=== PATIENT | male | born 1970 | race Caucasian/White ===

== ENCOUNTER → 2016-11-29 | Outpatient (CLI) | payer BC | END | disposition home or self-care (01) | LOC: GMAM 10:20 | PROVIDERS: ATTEND Family Medicine | DX: Z12.5 Encounter for screening for malignant neoplasm of prostate (principal); E29.1 Testicular hypofunction ==

== ENCOUNTER → 2016-12-14 | Outpatient (CLI) | payer BC ==
--- NOTE | 2016-12-15 03:14 | US ---
EXAM DESCRIPTION: Liver CLINICAL HISTORY: ELEVATED LFT COMPARISON: None. TECHNIQUE: Real-time sonographic images of the right upper abdomen were obtained using a curved multihertz transducer. FINDINGS: The visualized portions of the pancreas are unremarkable. The visualized portions of the aorta and IVC are unremarkable. The liver has normal contour and increased echogenicity. The common bile duct measures 0.5 cm. The gallbladder has a normal appearance. No gallstones identified. No wall thickening or pericholecystic fluid. The right kidney measures 14.8 cm in length. No hydronephrosis, solid renal mass, or shadowing calculi. IMPRESSION: 1. Hepatic steatosis. No gallstones. Electronically signed by: Uche Millan 12/15/2016 3:13 AM OB GYN PHYSICIAN ASSISTANT
== END | disposition home or self-care (01) ==
LOC: US 07:53
PROVIDERS: ATTEND Family Medicine
DX: K76.0 Fatty (change of) liver, not elsewhere classified (principal); R73.9 Hyperglycemia, unspecified; I10 Essential (primary) hypertension; E29.1 Testicular hypofunction; R94.5 Abnormal results of liver function studies

== ENCOUNTER 2018-01-17 02:20 | Emergency (ER) | payer BC ==
[2018-01-17 02:47] VITALS: O2SAT 97
[2018-01-17] MEDS ORDERED: CLINDAMYCIN IV 900MG 900 MG in PREMIX BAG 1 BAG IVPB ONE (03:19)
--- NOTE | 2018-01-17 03:22 | ED.PDOC ---
History of Present Illness - General Chief Complaint: Lower Extremity Injury Stated Complaint: red, edmatous rt ankle Time Seen by Provider: 01/17/18 03:18 Source: patient Exam Limitations: no limitations - History of Present Illness Initial Comments: THIS PATIENT SUSTAINED A LACERATION TO THE POSTERIOR ASPECT OF THE RIGHT ANKLE ABOUT ONE WEEK AGO. HE HAS LOSS OF SOME FLESH AND HAS NOT BEEN DOCTROING THE WOUND. NOW HE HAS DEVELOPED SWELLING OF THE LATERAL ABKLE WITH ERYTHEMA TO THE SKIN. DENIES ANY FEVER. Pain - Lower Extremity: moderate: Right Ankle Method of Injury: direct blow Improving Factors: nothing Worsening Factors: nothing Allergies/Adverse Reactions: Allergies NO KNOWN ALLERGY Allergy (Verified 01/17/18 03:49) Home Medications: Ambulatory Orders Clindamycin HCl 300 mg PO Q6HRS #40 cap 01/17/18 Tramadol HCl 50 mg PO Q6HRS #20 tab 01/17/18 Review of Systems - Review of Systems Constitutional: States: no symptoms reported, other - PAIN AND SWELLING EENTM: States: no symptoms reported Respiratory: States: no symptoms reported Cardiology: States: no symptoms reported Gastrointestinal/Abdominal: States: no symptoms reported Genitourinary: States: no symptoms reported Musculoskeletal: States: no symptoms reported Skin: States: other - REDNESS Neurological: States: no symptoms reported Endocrine: States: no symptoms reported Hematologic/Lymphatic: States: no symptoms reported Past Medical History (General) - Patient Medical History Hx Hypertension: Yes Surgical History: other - Vaccination History Hx Tetanus, Diphtheria Vaccination: No Hx Influenza Vaccination: No Hx Pneumococcal Vaccination: No - Social History Hx Alcohol Use: Yes - social Family Medical History - Family History Father Hx Family Hypertension: Yes Physical Exam - Physical Exam General Appearance: Alert, Well Developed, Well Hydrated, Well Nourished Eyes, Ears, Nose, Throat: normal ENT inspection Neck: non-tender, full range of motion, supple, normal inspection Cardiovascular/Respiratory: regular rate, rhythm, no M/R/G, normal peripheral pulses Gastrointestinal/Abdominal: non-tender, no organomegaly, no hernia Back: normal inspection Thigh/Hip: normal inspection Leg: normal inspection, non-tender Knee: normal inspection, non-tender, no evidence of injury Ankle: normal ROM, pain, soft tissue tenderness, swelling, other - ON THE POSTERIOR ASPECT OF THE ANKLE THERE IS AN UNHEALED LACERATION WITH EXPOSURE OF ADIPOSE TISSUE. THE LATERAL ASPECT OF THE ANKLE IS RED AND MODERATE SWELLING, NO ABSCESS FORMATION. Foot: normal inspection Neuro/Tendon: normal sensation, normal motor functions, normal tendon functions Mental Status: oriented x 3 Skin: warm/dry Progress - Progress Progress: 01/17/18 03:26 I WILL TRY OUTPATIENT TREATMENT. THE PATIENT SHOULD HAVE THE WOUND DRESSED BUT SHOULD LOOK AT THE CELLULITIS ON A DAILY BASIS. I HAVE TOLD THE PATIENT THAT THE ANTIBIOTICS SHOULD HELP WITHIN 72 HRS. IF NOT BETTER HE SHOULD EITHER F/U WITH YOU PCP OR RETURN TO THE ED FOR RE-EVALUATION. THERE IS A PROBABILITY OF OUTPATIENT FAILURE AND MIGHT NEED IV ANTIBIOTICS. 01/17/18 04:02 Vital Signs (72 hours) 01/17/18 02:41 Temperature 98.3 F Pulse Rate [ 86 left] Respiratory 20 Rate Blood Pressure 173/117 [left] O2 Sat by Pulse 97 Oximetry - Results/Orders Results/Orders: X-RAY OF THE RIGHT ANKLE IS NEGATIVE FOR FRACTURE OR DISLOCATION. Laboratory Results - last 24 hr 01/17/18 03:30 WBC 5.7 RBC 4.99 Hgb 14.9 Hct 44.8 MCV 89.6 MCH 29.8 MCHC 33.2 RDW 13.3 Plt Count 153 MPV 10.2 Absolute Neuts (auto) 3.40 Absolute Lymphs (auto) 1.50 Absolute Monos (auto) 0.50 Absolute Eos (auto) 0.20 Absolute Basos (auto) 0.00 Neutrophils % 59.7 Lymphocytes % 26.7 Monocytes % 9.4 H Eosinophils % 3.8 Basophils % 0.4 Departure - Departure Clinical Impression: Cellulitis of right ankle Time of Disposition: 04:20 Disposition: Discharge to Home or Self Care Condition: Good Departure Forms: ED Discharge - Pt. Copy, Patient Portal Self Enrollment Instructions: Cellulitis (Skin Infection), Adult (DC) Referrals: Keegan Swift MD [Primary Care Provider] - 1-2 Weeks Prescriptions: Clindamycin HCl 300 mg PO Q6HRS #40 cap Tramadol HCl 50 mg PO Q6HRS #20 tab Home Medications: Ambulatory Orders Clindamycin HCl 300 mg PO Q6HRS #40 cap 01/17/18 Tramadol HCl 50 mg PO Q6HRS #20 tab 01/17/18
[2018-01-17] MEDS ORDERED: CLINDAMYCIN IV 900MG 50 ML IVPB ONE (03:46)
--- NOTE | 2018-01-17 04:04 | RAD ---
RIGHT ANKLE, THREE VIEWS. 01/17/2018 HISTORY: Pain and swelling. COMPARISON: None. TECHNIQUE: AP, lateral, and oblique views right ankle. FINDINGS: There is right ankle soft tissue swelling. There is no fracture. No dislocation. No joint effusion. Mild hypertrophic changes along the distal tibia and fibula. Mild bony hypertrophic change on the dorsum of the talus. Posterior and inferior calcaneal osteophytes noted. Normal bone density. Included midfoot is intact. IMPRESSION: 1. Right ankle soft tissue swelling. No acute bony finding. 2. Mild osteoarthritis. Electronically signed by: Natacha León DO 01/17/2018 4:03 AM [facility]
[2018-01-17] MEDS ORDERED: NEOMYCIN-BACITRACIN-POLYMYXIN 0.9 GM UD TOP ONE (04:28)
[2018-01-17 04:50] VITALS: BP 157/106; TEMP 97.9
== END 2018-01-17 04:50 | disposition home or self-care (01) ==
LOC: ER 02:20
DX: L03.115 Cellulitis of right lower limb (principal); S91.011A Laceration without foreign body, right ankle, initial encounter; I10 Essential (primary) hypertension; W23.0XXA Caught, crushed, jammed, or pinched between moving objects, initial encounter; Y92.9 Unspecified place or not applicable
CPT/HCPCS: 73610; 85025; J3490

== ENCOUNTER 2018-01-18 07:02 | Inpatient (IN) | payer BC ==
[2018-01-18] MEDS ORDERED: MORPHINE SULFATE INJ 10 MG/ML VIAL IV ONE ×2 (07:25→08:27)
[2018-01-18] MEDS ORDERED: KETOROLAC TROMETHAMINE INJ 30 MG/ML VIAL IV ONE (07:25)
[2018-01-18] MEDS ORDERED: cefTRIAXone SODIUM 1 GM in SODIUM CHL 0.9% 50ML MIN-BAG+ 50 ML IVPB ONE (07:25)
--- NOTE | 2018-01-18 07:28 | ED.PDOC ---
History of Present Illness - General Chief Complaint: Lower Extremity Injury Stated Complaint: R heel redness, tenderness, and pain Time Seen by Provider: 01/18/18 07:18 Source: patient Exam Limitations: no limitations - History of Present Illness Initial Comments: patient comes in today with worsening of pain and swelling to his right Achilles. Patient states 2 weeks ago he was coming out of a store and clipped the back of his heel. At that time he lost a good portion of skin but he's been doctoring at home with Neosporin and bandages. Patient stated it seemed to be doing fine until 2 days ago. 2 days ago the patient started having pain, swelling, and noticing some redness. Last night it got worse and he came to the emergency room and received IV clindamycin and by mouth tramadol. Patient states he went home but is progressively worsened. Patient states the pain is the worst in his life and it feels more severe than when he has gout. Patient able to walk on it and is having diaphoresis although he is unsure if that's from fever or from the severity of the pain. Patient denies any nausea, vomiting, or systemic symptoms. Patient's only past medical history is hypertension. Patient has no known drug allergies. Patient does not smoke, drinks a couple of servings of liquor every other day and does not take any illicit drugs. Occurred: other - 2 weeks ago cut on achilles but started swelling 2 days ago Pain - Lower Extremity: severe: Right Foot Method of Injury: other - see description Improving Factors: nothing Worsening Factors: nothing Allergies/Adverse Reactions: Allergies NO KNOWN ALLERGY Allergy (Verified 01/18/18 07:17) Home Medications: Ambulatory Orders Clindamycin HCl 300 mg PO Q6HRS #40 cap 01/17/18 Tramadol HCl 50 mg PO Q6HRS #20 tab 01/17/18 Amphetamine Salts 20 mg PO BID 01/18/18 Review of Systems - Review of Systems Constitutional: States: diaphoresis. Denies: chills, fever EENTM: States: no symptoms reported. Denies: eye pain, ear pain, nose congestion Respiratory: States: no symptoms reported. Denies: cough, short of breath, wheezing Cardiology: States: no symptoms reported. Denies: chest pain, palpitations Gastrointestinal/Abdominal: States: no symptoms reported, nausea. Denies: abdominal pain, constipation, diarrhea Genitourinary: Denies: no symptoms reported Musculoskeletal: States: see HPI Skin: States: see HPI Past Medical History (General) - Patient Medical History Hx Stroke: No Hx Congestive Heart Failure: No Hx Hypertension: Yes Hx Diabetes: No Hx MRSA: No - Vaccination History Hx Tetanus, Diphtheria Vaccination: No Hx Influenza Vaccination: No Hx Pneumococcal Vaccination: No - Social History Hx Tobacco Use: No Hx Alcohol Use: No Family Medical History - Family History Father Hx Family Hypertension: Yes Physical Exam - Physical Exam General Appearance: Alert, Obvious distress Eyes, Ears, Nose, Throat: PERRL/EOMI, normal ENT inspection, TMs normal Neck: non-tender Cardiovascular/Respiratory: regular rate, rhythm, no M/R/G, normal peripheral pulses, no JVD, normal breath sounds Gastrointestinal/Abdominal: non-tender Ankle: swelling, other - patient has 4 cm healing avulsion of skin at the right achilles. It has some light yellow drainage but no fluctulance and no induration. Ankle is slightly red with not pitting edema to the ankle and foot, no calor Mental Status: alert, oriented x 3 Progress - Progress Progress: 01/18/18 08:45 failed out patient therapy. Discussed with PCP Dr. Swift and instructional material director CAMP NURSE Clare Flor and will admit for IV antibiotics and possible gout treatment - Results/Orders Results/Orders: 01/18/18 07:30 ERYTHROCYTE SEDIMENTATION RATE Stat 01/18/18 07:59 Vancomycin HCl Inj 1,000 mg Sodium Chloride 0.9% 250Ml [NS 250ml] 250 ml IVPB ONCE Laboratory Results WBC 6.7 K/mm3 (4.8-10.8) 01/18/18 07:25 RBC 5.15 M/mm3 (4.70-6.10) 01/18/18 07:25 Hgb 15.4 gm/dL (14.0-18.0) 01/18/18 07:25 Hct 46.3 % (42.0-52.0) 01/18/18 07:25 MCV 90.0 fl (80.0-94.0) 01/18/18 07:25 MCH 29.9 pg (27.0-31.0) 01/18/18 07:25 MCHC 33.2 g/dL (33.0-37.0) 01/18/18 07:25 RDW 13.3 % (11.5-14.5) 01/18/18 07:25 Plt Count 146 K/mm3 (130-400) 01/18/18 07:25 MPV 10.2 fl (7.40-10.4) 01/18/18 07:25 Absolute Neuts (auto) 4.60 K/uL (1.8-6.8) 01/18/18 07:25 Absolute Lymphs (auto) 1.40 K/uL (1.0-3.4) 01/18/18 07:25 Absolute Monos (auto) 0.50 K/uL (0.2-0.8) 01/18/18 07:25 Absolute Eos (auto) 0.20 K/uL (0.0-0.4) 01/18/18 07:25 Absolute Basos (auto) 0.00 K/uL (0.0-0.1) 01/18/18 07:25 Neutrophils % 69.3 % (42.0-78.0) 01/18/18 07:25 Lymphocytes % 20.2 % (20.0-50.0) 01/18/18 07:25 Monocytes % 7.5 % (2.0-9.0) 01/18/18 07:25 Eosinophils % 2.7 % (1.0-5.0) 01/18/18 07:25 Basophils % 0.3 % (0.0-2.0) 01/18/18 07:25 Sodium 139 mmol/L (135-145) 01/18/18 07:30 Potassium 3.9 mmol/L (3.6-5.0) 01/18/18 07:30 Chloride 101 mmol/L (101-111) 01/18/18 07:30 Carbon Dioxide 29 mmol/L (21-31) 01/18/18 07:30 Anion Gap 12.9 (12-18) 01/18/18 07:30 BUN 12 mg/dL (7-18) 01/18/18 07:30 Creatinine 1.12 mg/dL (0.6-1.3) 01/18/18 07:30 BUN/Creatinine Ratio 10.7 (10-20) 01/18/18 07:30 Random Glucose 126 mg/dL (70-105) H 01/18/18 07:30 Serum Osmolality 278.8 mOsm/L (275-295) 01/18/18 07:30 Lactic Acid 1.0 mmol/L (0.5-2.2) 01/18/18 07:30 Uric Acid 9.5 mg/dL (2.6-7.2) H 01/18/18 07:30 Calcium 9.1 mg/dL (8.4-10.2) 01/18/18 07:30 Total Bilirubin 1.1 mg/dL (0.2-1.0) H 01/18/18 07:30 AST 32 IU/L (10-42) 01/18/18 07:30 ALT 34 IU/L (10-60) 01/18/18 07:30 Alkaline Phosphatase 80 IU/L (42-121) 01/18/18 07:30 Serum Total Protein 7.2 gm/dL (6.4-8.2) 01/18/18 07:30 Albumin 4.1 g/dl (3.2-5.5) 01/18/18 07:30 Globulin 3.1 gm/dL (2.3-3.5) 01/18/18 07:30 Albumin/Globulin Ratio 1.3 (1.1-1.9) 01/18/18 07:30 Patient Name: ELADIO RAGSDALE Gender: Male Date of : 1970 Referring Physician: MAHAMED MONTGOMERY Organization: [facility] Accession Number: [id number] Requested Date: January 18, 2018 07:26 Report Status: Final Requested Procedure: 1 Procedure Description: Lower Extremity Modality: CT Findings Reporting MD: Oscar Schroeder Fellow MD: Not available Dictation Time: Grocery Store Courtesy Clerk: Not available Senior Lead Software Engineer Date: EXAM DESCRIPTION: Lower Extremity: Computed Tomography. CLINICAL HISTORY: 47 years Male worsening cellulitis, questionable osteo COMPARISON: Right ankle radiographs 01/17/2018. TECHNIQUE: Spiral, axial 2.5 x 2.5 mm scans through the right ankle and foot without contrast. Coronal and sagittal 2.0 mm reconstructions. Total Exam DLP: 114.18 mGy-cm. This exam was performed according to our departmental CT dose-optimization program which includes automated exposure control, adjustment of the mA and/or kV according to patient size and/or use of iterative reconstruction technique; to reduce radiation dose to as low as reasonably achievable (ALARA). FINDINGS: Minimal narrowing of the medial and lateral gutters of the ankle mortise. More narrowing of the medial superior recess than the superior lateral recess. No fractures. No bone destruction. Posterior ossicle is fused to the talus with minimal narrowing of the posterior subtalar joint. Medial subtalar joint is unremarkable. No bone destruction or fracture. Marginal spurs anterior tibial plafond and superior talar neck. No fracture or bone destruction. Posterior calcaneus enthesophyte at the Achilles insertion and plantar calcaneal spur at the plantar fascia origin. Calcaneus is intact. Edema in the subcutaneous adipose tissues on the medial and lateral aspect of the ankle. Mild hallux valgus in the foot with marginal spurs. No bone destruction in the foot. IMPRESSION: Arthrosis of multiple joint joint margins with no fracture or bone destruction. Subcutaneous adipose tissue with edema consistent with history. 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 Electronically signed by: Oscar Schroeder MD 01/18/2018 8:37 AM RECORDS ADMINISTRATOR Departure - Departure Clinical Impression: Cellulitis of right ankle Disposition: Admit Patient Departure Forms: ED Discharge - Pt. Copy, Patient Portal Self Enrollment Instructions: DI for Leg Pain Referrals: Keegan Swift MD [Primary Care Provider] - 1-2 Weeks Home Medications: Ambulatory Orders Clindamycin HCl 300 mg PO Q6HRS #40 cap 01/17/18 Tramadol HCl 50 mg PO Q6HRS #20 tab 01/17/18 Amphetamine Salts 20 mg PO BID 01/18/18 Decision To Admit - Decistion To Admit Decision to Admit Reason: Admit from ER Decision to Admit Date: 01/18/18 Decision to Admit Time: 08:46
[2018-01-18] MEDS ORDERED: SODIUM CHL 0.9% 50ML MIN-BAG+ 50 ML IVPB ONE (07:39)
[2018-01-18] MEDS ORDERED: cefTRIAXone SODIUM 1 GM VIAL ONE (07:39)
[2018-01-18] MEDS ORDERED: VANCOMYCIN HCL INJ 1,000 MG in SODIUM CHLORIDE 0.9% 250ML 250 ML IVPB ONE (07:59)
[2018-01-18] MEDS ORDERED: TETANUS,DIPHTHERIA,PERTUSSIS 1 EA SYG IM ONE (08:00)
[2018-01-18] MEDS ORDERED: SODIUM CHLORIDE 0.9% 250ML 250 ML ONE (08:03)
[2018-01-18] MEDS ORDERED: VANCOMYCIN HCL INJ 1,000 MG VIAL IVPB ONE ×2 (08:03→16:35)
--- NOTE | 2018-01-18 08:38 | CT ---
EXAM DESCRIPTION: Lower Extremity: Computed Tomography. CLINICAL HISTORY: 47 years Male worsening cellulitis, questionable osteo COMPARISON: Right ankle radiographs 01/17/2018. TECHNIQUE: Spiral, axial 2.5 x 2.5 mm scans through the right ankle and foot without contrast. Coronal and sagittal 2.0 mm reconstructions. Total Exam DLP: 114.18 mGy-cm. This exam was performed according to our departmental CT dose-optimization program which includes automated exposure control, adjustment of the mA and/or kV according to patient size and/or use of iterative reconstruction technique; to reduce radiation dose to as low as reasonably achievable (ALARA). FINDINGS: Minimal narrowing of the medial and lateral gutters of the ankle mortise. More narrowing of the medial superior recess than the superior lateral recess. No fractures. No bone destruction. Posterior ossicle is fused to the talus with minimal narrowing of the posterior subtalar joint. Medial subtalar joint is unremarkable. No bone destruction or fracture. Marginal spurs anterior tibial plafond and superior talar neck. No fracture or bone destruction. Posterior calcaneus enthesophyte at the Achilles insertion and plantar calcaneal spur at the plantar fascia origin. Calcaneus is intact. Edema in the subcutaneous adipose tissues on the medial and lateral aspect of the ankle. Mild hallux valgus in the foot with marginal spurs. No bone destruction in the foot. IMPRESSION: Arthrosis of multiple joint joint margins with no fracture or bone destruction. Subcutaneous adipose tissue with edema consistent with history. 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 Electronically signed by: Oscar Schroeder MD 01/18/2018 8:37 AM [facility]
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
[2018-01-18] MEDS ORDERED: LISINOPRIL 10 MG TAB PO ONE (09:47)
[2018-01-18] MEDS ORDERED: COLCHICINE 0.6 MG TAB PO ONE ×2 (10:30→11:30)
[2018-01-18] MEDS ORDERED: VANCOMYCIN PER PHARMACY INJ SCH (10:30)
[2018-01-18] MEDS ORDERED: ONDANSETRON INJ 4 MG/2 ML VIAL IV PRN (12:09)
[2018-01-18] MEDS ORDERED: MORPHINE SULFATE INJ 10 MG/ML VIAL IV PRN (12:09)
[2018-01-18] MEDS: PANTOPRAZOLE SODIUM IV 40 MG VIAL IV SCH (13:37)
[2018-01-18] MEDS: ENOXAPARIN SODIUM 40 MG/0.4 ML SYG SUBCU SCH (13:38)
[2018-01-18] MEDS ORDERED: VANCOMYCIN HCL INJ 2,000 MG in SODIUM CHLORIDE 0.9% 500ML 500 ML IVPB SCH (16:00)
[2018-01-18] MEDS ORDERED: SODIUM CHLORIDE 0.9% 500ML 500 ML ONE (16:35)
[2018-01-18] MEDS: VANCOMYCIN HCL INJ 2,000 MG in SODIUM CHLORIDE 0.9% 500ML 500 ML IVPB SCH (17:04)
[2018-01-18] MEDS: IV SET AND CAP CHANGE INJ INJ SCH (17:34)
[2018-01-18] MEDS: HYDROmorphone HCL INJ 2 MG/ML VIAL IV PRN ×2 (20:02→21:35)
[2018-01-18] MEDS ORDERED: COLCHICINE 0.6 MG TAB ONE (21:14)
[2018-01-19] MEDS: HYDROmorphone HCL INJ 2 MG/ML VIAL IV PRN ×5 (01:05→18:56)
[2018-01-19] MEDS ORDERED: SODIUM CHLORIDE 0.9% 500ML 500 ML ONE ×3 (03:07→20:05)
[2018-01-19] MEDS ORDERED: VANCOMYCIN HCL INJ 1,000 MG VIAL IVPB ONE ×3 (03:08→20:05)
[2018-01-19] MEDS: VANCOMYCIN HCL INJ 2,000 MG in SODIUM CHLORIDE 0.9% 500ML 500 ML IVPB SCH ×2 (04:08→16:04)
[2018-01-19] MEDS ORDERED: SODIUM CHL 0.9% 50ML MIN-BAG+ 50 ML IVPB ONE (05:29)
[2018-01-19] MEDS ORDERED: cefTRIAXone SODIUM 1 GM VIAL ONE (05:29)
[2018-01-19] MEDS: PANTOPRAZOLE SODIUM IV 40 MG VIAL IV SCH (05:32)
[2018-01-19] MEDS: cefTRIAXone SODIUM 1 GM in SODIUM CHL 0.9% 50ML MIN-BAG+ 50 ML IVPB SCH (06:15)
[2018-01-19] MEDS: COLCHICINE 0.6 MG TAB PO SCH ×2 (09:35→20:36)
[2018-01-19] MEDS ORDERED: MAGNESIUM HYDROXIDE 30 ML UD PO ONE (10:21)
[2018-01-19] MEDS: BIFIDOBACTERIUM INFANTIS 4 MG CAP PO SCH ×2 (11:25→20:36)
[2018-01-19] MEDS: DOCUSATE SODIUM 100 MG CAP PO SCH ×2 (11:25→20:36)
[2018-01-19] MEDS: VALSARTAN 80 MG TAB PO SCH (13:01)
[2018-01-19] MEDS: ENOXAPARIN SODIUM 40 MG/0.4 ML SYG SUBCU SCH (13:01)
--- NOTE | 2018-01-19 13:04 | PN ---
DATE: 01/19/18 SUPERVISING PHYSICIAN: Uche Salcido M.D. SUBJECTIVE: The patient is up in his room going to the restroom. He continues complaints of pain but we switched him from morphine to Dilaudid yesterday and the Dilaudid helps with his pain much more than the morphine did. We discussed transitioning to oral pain medications tomorrow and he agreed with that. He also complained of some constipation and will give him some Colace. I explained that it was most likely due to the pain medication. I would give him some Milk of Magnesia as well as Colace. He feels like his foot is somewhat better and the swelling has gone down. Denies chest pain, nausea, vomiting, diarrhea or shortness of breath. OBJECTIVE: VITAL SIGNS: Temperature 98.1, heart rate 96, blood pressure 116/74, respiratory rate 18, O2 sat 95% on room air. RESPIRATORY: Essentially clear to auscultation bilaterally. CARDIAC: Regular rate and rhythm. At times he does get slightly tachycardic. GASTROINTESTINAL: Abdomen is soft, nondistended, non- tender. Bowel sounds are positive. EXTREMITIES: The abrasion on his left Achilles is less erythematous and edematous than yesterday. There is no drainage today. Bilateral pedal pulses are +2. Measurement showed that his ankle has decreased by 1 cm over the last 24 hours. NEUROLOGIC: He is awake, alert and oriented times three. LABORATORY: CBC is basically within normal limits. Sodium is slightly low at 134 and chloride 99. The remainder of his electrolytes are within normal limits. Serum osmolality is slightly low at 267.6. CRP is elevated st 3.9. There is a culture of his right wound pending. Again there were no blood cultures done in the Emergency Room. Hemoglobin A1c is 5.6. All other labs and films have been reviewed via the EMR. ASSESSMENT: 1. Cellulitis of the right lower extremity with an elevated CRP of 3.9. 2. Acute gout flare in a patient with a history of gout. He was started on prophylactic gout medications of Colchicine. 3. Hypertension, poorly controlled. The patient has been out of his medication for several weeks. 4. Elevated glucose with a history of hyperglycemia. PLAN: We will continue present supportive care. His leg feels much better when it is elevated above his heart, so we will continue with that. I will continue with his Dilaudid pain medications and tomorrow will transition to oral pain medications. I have ordered him a dose of Milk of Magnesia as well as some scheduled Colace. It is to be noted that he would benefit from a sleep apnea test as Respiratory has done their preliminary sleep apnea questionnaire and he qualifies for a sleep apnea test after discharge. I will hold on any labs tomorrow and we will watch his clinical progression. Will continue to monitor closely and follow as needed. Dr. Salcido is the collaborating physician available for consultation. #[id number] [facility]ITAL[facility]
[2018-01-20] MEDS: HYDROmorphone HCL INJ 2 MG/ML VIAL IV PRN ×3 (01:55→13:45)
[2018-01-20] MEDS: VANCOMYCIN HCL INJ 2,000 MG in SODIUM CHLORIDE 0.9% 500ML 500 ML IVPB SCH ×2 (04:07→16:26)
[2018-01-20] MEDS: PANTOPRAZOLE SODIUM IV 40 MG VIAL IV SCH (05:59)
[2018-01-20] MEDS ORDERED: SODIUM CHL 0.9% 50ML MIN-BAG+ 50 ML IVPB ONE ×2 (06:19→19:21)
[2018-01-20] MEDS ORDERED: cefTRIAXone SODIUM 1 GM VIAL ONE ×2 (06:19→19:23)
[2018-01-20] MEDS: cefTRIAXone SODIUM 1 GM in SODIUM CHL 0.9% 50ML MIN-BAG+ 50 ML IVPB SCH (06:50)
[2018-01-20] MEDS: VALSARTAN 80 MG TAB PO SCH (08:10)
[2018-01-20] MEDS: COLCHICINE 0.6 MG TAB PO SCH ×2 (08:10→20:56)
[2018-01-20] MEDS: DOCUSATE SODIUM 100 MG CAP PO SCH ×2 (08:10→20:56)
[2018-01-20] MEDS: BIFIDOBACTERIUM INFANTIS 4 MG CAP PO SCH ×2 (09:57→20:56)
[2018-01-20] MEDS: HYDROcodone 10MG/APAP 325MG 1 EA TAB PO PRN ×2 (11:01→16:27)
[2018-01-20] MEDS: ENOXAPARIN SODIUM 40 MG/0.4 ML SYG SUBCU SCH (13:36)
[2018-01-20] MEDS ORDERED: VANCOMYCIN HCL INJ 1,000 MG VIAL IVPB ONE ×2 (16:16→19:23)
[2018-01-20] MEDS ORDERED: SODIUM CHLORIDE 0.9% 500ML 500 ML ONE ×2 (16:16→19:22)
[2018-01-20] MEDS ORDERED: HYDROmorphone HCL INJ 2 MG/ML VIAL IV ONE (18:49)
--- NOTE | 2018-01-20 21:01 | PN ---
DATE: 01/20/18 SUPERVISING PHYSICIAN: Uche Salcido M.D. SUBJECTIVE: The patient is lying in bed. His right foot is elevated above his heart. He says his foot feels much better except when he puts it down to go to the restroom and then it swells up and becomes very reddened, and is painful. I have transitioned him from IV pain medications to oral pain medication. He feels like that they are doing pretty well, although he says they don't quite last the full 4 hours. Otherwise he denies shortness of breath, chest pain, nausea, vomiting, diarrhea or constipation. OBJECTIVE: VITAL SIGNS: He is afebrile, heart rate 76, blood pressure 152/80, respiratory rate 18, O2 sat 95%. RESPIRATORY: Essentially clear to auscultation bilaterally. CARDIAC: Regular rate and rhythm. GASTROINTESTINAL: Abdomen is soft, nondistended, non-tender. Bowel sounds are positive. EXTREMITIES: His left leg continues to improve. It is much less edematous and erythematous than yesterday. There is only a trace of pedal edema. His bilateral pedal pulses are +2. His right great toe is warm to touch and erythematous most likely from his gout flare, but there is only a small amount of erythema around the ankle area. NEUROLOGIC: He is awake, alert and oriented times three. LABORATORY: Wound culture is still pending. All other labs and films have been reviewed via the EMR. ASSESSMENT: 1. Cellulitis of the right lower extremity with an elevated CRP of 3.9. 2. Acute gout flare in a patient with a history of gout. He was started on prophylactic gout medications of Colchicine. 3. Hypertension, poorly controlled. The patient has been out of his medication for several weeks. 4. Elevated glucose with a history of hyperglycemia. PLAN: We will continue present supportive care. He will continue to elevate his ankle. I am hoping he can be discharged once his wound cultures have resulted. He will also need to go home with some Colchicine. When he sees Dr. Swift he will need to be put on prophylactic gout medication. I have not discontinued the Dilaudid as yet as he was having some issues with pain control, but his Dilaudid will need to be discontinued tomorrow. Will need to plan for his discharge as soon as his cultures are resulted. I have encouraged good pulmonary hygiene. I will hold on any lab as we will monitor his clinical progress. It may be helpful to get a CRP tomorrow or Hannah as it was his only inflammatory marker that was initially elevated. Will continue to monitor him closely and follow as needed. Dr. Salcido is the collaborating physician available for consultation. #[id number] [facility]
[2018-01-21] MEDS: VANCOMYCIN HCL INJ 2,000 MG in SODIUM CHLORIDE 0.9% 500ML 500 ML IVPB SCH ×2 (04:00→16:28)
[2018-01-21] MEDS: HYDROcodone 10MG/APAP 325MG 1 EA TAB PO PRN ×3 (04:04→16:27)
[2018-01-21] MEDS: PANTOPRAZOLE SODIUM IV 40 MG VIAL IV SCH (06:10)
[2018-01-21] MEDS: cefTRIAXone SODIUM 1 GM in SODIUM CHL 0.9% 50ML MIN-BAG+ 50 ML IVPB SCH (06:43)
[2018-01-21] MEDS: DOCUSATE SODIUM 100 MG CAP PO SCH ×2 (08:43→21:03)
[2018-01-21] MEDS: COLCHICINE 0.6 MG TAB PO SCH ×2 (08:43→21:03)
[2018-01-21] MEDS: VALSARTAN 80 MG TAB PO SCH (08:43)
[2018-01-21] MEDS: BIFIDOBACTERIUM INFANTIS 4 MG CAP PO SCH ×2 (08:43→21:03)
[2018-01-21] MEDS ORDERED: HYDROmorphone HCL INJ 2 MG/ML VIAL IV ONE (10:58)
--- NOTE | 2018-01-21 11:08 | US ---
EXAM DESCRIPTION: Venous,Lower Extremity RT CLINICAL HISTORY: edema/pain rule out DVT COMPARISON: None Available. TECHNIQUE: Right lower extremity venous grayscale, spectral, and color Doppler sonographic images. FINDINGS: There is no DVT identified. There is normal color flow observed with good flow augmentation. All deep veins compress normally. IMPRESSION: Negative for DVT Electronically signed by: Shamar Saez MD 01/21/2018 11:07 AM [employer]
[2018-01-21] MEDS ORDERED: methylPREDNISolone SODIUM SUC 40 MG/ML VIAL IV ONE (12:25)
[2018-01-21] MEDS: SODIUM CHLORIDE 0.9% (FLUSH) 10 ML SYG IV PRN ×3 (12:30→19:00)
[2018-01-21] MEDS: ENOXAPARIN SODIUM 40 MG/0.4 ML SYG SUBCU SCH (12:30)
[2018-01-21] MEDS: IV SET AND CAP CHANGE INJ INJ SCH (12:39)
--- NOTE | 2018-01-21 14:10 | PN ---
SUPERVISING PHYSICIAN: Dino Pimentel MD DATE: 01/21/18 SUBJECTIVE: The patient states he does not feel like his leg is a whole better than when he came in. He states when it is elevated, the swelling seems to go down a bit, but as soon as he stands up, it starts to swell again and gets purple in color. OBJECTIVE: VITAL SIGNS: Blood pressure 172/107. Heart rate 70. Respiratory rate 18. Temperature 98.3. Oxygen saturation 98%. GENERAL: Mr. Gill is a 47-year-old male patient in no active distress currently. NEUROLOGIC: Alert and oriented. LUNGS: Clear to auscultation bilaterally. CARDIOVASCULAR: Regular rate and rhythm. Normal S1, S2. ABDOMEN: Soft, obese. Positive bowel sounds. GENITOURINARY: Deferred. EXTREMITIES: Lower extremities with no edema on the left lower extremity. The right lower extremity is marked. There is lack of visibility of the veins and obvious edema noted. This is probably 1 to 2+ edema at this point. There is no surrounding erythema. He does have erythema at the base of the medial aspect of the left great toe. He is able to point his toes downward a little bit, but pointing his toes upwards and dorsiflexion is difficult for him. In fact, when this done passively, it creates quite a bit of pain for him. LABORATORY: Labs were done. Recheck today shows sodium 136, potassium 4.1, chloride 98, CO2 32, BUN 12, creatinine 0.94, glucose 114, calcium 9.1. I rechecked his CK and it is 4.7, whereas three days ago, it was 3.9. I also ordered a venous Doppler and was negative for DVT. ASSESSMENT: 1. Cellulitis of the right lower extremity with an elevated CRP which has now gone up to 4.7. 2. Acute gout flare, placed on colchicine several days ago and does not appear to be improving. 3. Hypertension, poorly controlled and possibly related to his pain at this time as well. 4. Hyperglycemia with hemoglobin A1c of 5.6, so no indication of diabetes mellitus at this point. PLAN: We will continue the antibiotics at this time. I have spoken with Dr. Swift who evaluated the patient as well and is his patient in the clinic. He thinks Dr. Thapa needs to be consulted given the possibility of the cellulitis and the continued pain. Given his elevation in CRP, I feel he could potentially have some gout going on in his ankle and not visible. I did discuss this with Dr. Swift and we agreed that maybe giving a dose of Solu-Medrol to see if this would help with any of his pain would be beneficial. We are going to give him 40 mg of Solu-Medrol IV x1. I have spoken with Dr. Thapa's office as he is out of town today and he is supposed to see the patient tomorrow. We will repeat his labs in the morning as well including chemistry, CBC and CRP. I have given him a one-time dose of Dilaudid also and breakthrough due to his continued pain. #[id number] [facility]
[2018-01-21] MEDS ORDERED: SODIUM CHLORIDE 0.9% 500ML 500 ML ONE (15:06)
[2018-01-21] MEDS ORDERED: VANCOMYCIN HCL INJ 1,000 MG VIAL IVPB ONE (15:06)
[2018-01-21] MEDS: NEBIVOLOL 2.5 MG TAB PO SCH (15:16)
[2018-01-21] MEDS ORDERED: cloNIDine HCL 0.1 MG TAB ONE (17:54)
[2018-01-21] MEDS ORDERED: cloNIDine HCL 0.1 MG TAB PO PRN (17:59)
[2018-01-22] MEDS: HYDROcodone 10MG/APAP 325MG 1 EA TAB PO PRN (02:19)
[2018-01-22] MEDS ORDERED: SODIUM CHLORIDE 0.9% 500ML 500 ML ONE (03:39)
[2018-01-22] MEDS ORDERED: SODIUM CHL 0.9% 50ML MIN-BAG+ 50 ML IVPB ONE (03:39)
[2018-01-22] MEDS ORDERED: VANCOMYCIN HCL INJ 1,000 MG VIAL IVPB ONE (03:40)
[2018-01-22] MEDS ORDERED: cefTRIAXone SODIUM 1 GM VIAL ONE (03:40)
[2018-01-22] MEDS: VANCOMYCIN HCL INJ 2,000 MG in SODIUM CHLORIDE 0.9% 500ML 500 ML IVPB SCH (04:17)
[2018-01-22] MEDS: SODIUM CHLORIDE 0.9% (FLUSH) 10 ML SYG IV PRN ×2 (04:18→07:00)
[2018-01-22 06:58] VITALS: BP 128/89; TEMP 98.1
[2018-01-22] MEDS: PANTOPRAZOLE SODIUM IV 40 MG VIAL IV SCH (07:00)
[2018-01-22] MEDS: cefTRIAXone SODIUM 1 GM in SODIUM CHL 0.9% 50ML MIN-BAG+ 50 ML IVPB SCH (07:00)
[2018-01-22] MEDS ORDERED: methylPREDNISolone SODIUM SUC 40 MG/ML VIAL IV ONE (08:51)
[2018-01-22] MEDS: VALSARTAN 80 MG TAB PO SCH (08:51)
[2018-01-22] MEDS: BIFIDOBACTERIUM INFANTIS 4 MG CAP PO SCH (08:52)
[2018-01-22] MEDS: NEBIVOLOL 2.5 MG TAB PO SCH (08:52)
[2018-01-22] MEDS: DOCUSATE SODIUM 100 MG CAP PO SCH (08:52)
[2018-01-22] MEDS: COLCHICINE 0.6 MG TAB PO SCH (09:03)
[2018-01-22 10:21] VITALS: O2SAT 99
--- NOTE | 2018-01-22 12:55 | CONS ---
DATE OF CONSULTATION: CHIEF COMPLAINT: Right ankle and foot pain. HISTORY OF PRESENT ILLNESS: Mr. Gill is a 47 year-old male with a history of gout. He related it to having cooked out at least 7 days in a row in addition to drinking quite a bit of beer over that time frame. He says he ate red meat almost every day. He has recently had the onset in worsening of ankle and great toe pain. He presented and has had labs now that show evidence of increased uric acid. I was consulted to ensure that this was indeed gout as opposed to any type of cellulitic issue. He denies any fever or trauma related to this. PAST MEDICAL HISTORY: 1. Hypertension. 2. Gout. 3. Hyperglycemia. PAST SURGICAL HISTORY: 1. Splenectomy with nephrectomy. 2. Umbilical herniorrhaphy. CURRENT MEDICATIONS: 1. Benicar. ALLERGIES: NO KNOWN DRUG ALLERGIES. FAMILY HISTORY: None pertinent to today's complaints. SOCIAL HISTORY: He does drink alcohol. He denies any illicit drug use and does eat quite a bit of foods known to trigger gout. REVIEW OF SYSTEMS: Negative except as indicated in the History of Present Illness. PHYSICAL EXAMINATION: VITAL SIGNS: Blood pressure 162/109, respirations 20, O2 sat 96 on room air, temperature 98.5. MENTAL STATUS: The patient is awake, alert, and is able to give a good history and participate in the physical. The patient is oriented to person, place and time. SKIN: Normal tone and turgor. MUSCULOSKELETAL: He has some diffuse swelling over the ankle and the great toe metatarsal phalangeal joint. He is extremely tender over the metatarsal phalangeal joint and over the ankle but says that is has improved significantly since he had a steroid injection. He has no erythema today. No increased warmth. Sensation is intact. He has no deformity. ASSESSMENT; 1. Gout. PLAN: I agreed with the utilization of steroid. He probably also needs to be put on IV Uloric or Allopurinol. He is also utilizing Colchicine at this time. I do not think that this necessarily needs any more inpatient treatment. He could be discharged with close followup. Thank you for allowing me to participate in this patient's care. #[id number] [facility]
--- NOTE | 2018-01-22 19:49 | DS ---
SUPERVISING PHYSICIAN: Dino Pimentel M.D. ADMISSION DIAGNOSIS: 1. Cellulitis of the right lower extremity. 2. Acute gout flare. 3. Hypertension. 4. Elevated glucose. DISCHARGE DIAGNOSIS: 1. Acute gout flare of the right ankle. 2. Hypertension. 3. Hyperglycemia without diabetes mellitus. HOSPITAL COURSE: This is a 47 year-old male patient who came to the Emergency Room complaining of worsening pain in his right lower extremity. He had noted lower extremity swelling around his Achilles. Approximately 2 weeks prior to admission he was at [facility] and clipped the back of his ankle with the door. It removed some skin and he was using Neosporin at home for treatment but he continued to have increased swelling and redness of the lower extremity, not necessarily at the site of the torn skin but the whole ankle. That is when he came into the Emergency Room. He did not have any leukocytosis. His uric acid was elevated at 9.5. He had a CT which showed arthrosis of multiple joint margins but no fracture. He had an elevated CRP at 3.9. He was admitted and treated for cellulitis as well as the gout. He was placed on b.i.d. Colchicine and vancomycin. Over the next several days he did not have a whole lot of improvement. He had a repeat CRP which was more elevated at 4.7 from 3.9. White blood cell counts remained normal. His great toe base medial aspect is still quite erythematous as well consistent with gout flare. We gave him a dose of Solu-Medrol on the and he had a dramatic improvement in his symptoms after the Solu-Medrol. We felt at that point it was a gout flare and not necessarily cellulitis. We consulted Dr. Thapa as well to evaluate the patient and he was in agreement. Therefore the patient will be discharged in stable condition on the . PLAN: He was given an additional dose of Solu-Medrol prior to leaving. He was discharged on a Medrol Dosepak in addition to Colchicine and Uloric. He will followup with Dr. Swift in 1 to 2 weeks. [facility][id number] [facility]
== END 2018-01-22 09:45 | disposition home or self-care (01) | DRG 603 ==
LOC: ER 07:02 → MS 09:01
PROVIDERS: ADMIT Nurse Practitioner Acute Care; ATTEND Nurse Practitioner
DX: L03.115 Cellulitis of right lower limb (principal); I10 Essential (primary) hypertension; M10.9 Gout, unspecified; K76.0 Fatty (change of) liver, not elsewhere classified; R73.9 Hyperglycemia, unspecified; K59.03 Drug induced constipation; T40.2X5A Adverse effect of other opioids, initial encounter; Y92.230 Patient room in hospital as the place of occurrence of the external cause; Z90.5 Acquired absence of kidney

== ENCOUNTER → 2020-01-12 | Outpatient (CLI) | payer BC | LOC: GMAM 14:03 | PROVIDERS: ATTEND Family Medicine | DX: Z12.5 Encounter for screening for malignant neoplasm of prostate (principal); R73.9 Hyperglycemia, unspecified; E29.1 Testicular hypofunction; M10.9 Gout, unspecified ==

== ENCOUNTER 2020-03-26 17:07 | Emergency (ER) | payer BC ==
[2020-03-26 17:27] VITALS: TEMP 98
--- NOTE | 2020-03-26 18:20 | CT ---
EXAM: CT Head and Cervical Spine Without Intravenous Contrast CLINICAL HISTORY: The patient is 49 years old and is Male; hit head on ice 3 days ago TECHNIQUE: Axial computed tomography images of the head/brain and cervical spine without intravenous contrast. Sagittal and coronal reformatted images were created and reviewed. This CT exam was performed using one or more of the following dose reduction techniques: automated exposure control, adjustment of the mA and/or kV according to patient size, and/or use of iterative reconstruction technique. COMPARISON: No relevant prior studies available. FINDINGS: Brain: Unremarkable. No hemorrhage. No significant white matter disease. No edema. Ventricles: Unremarkable. No ventriculomegaly. Skull: No acute fracture. Sinuses: Unremarkable as visualized. No acute sinusitis. Mastoid air cells: Unremarkable as visualized. No mastoid effusion. Vertebrae: Unremarkable. No acute fracture. Normal alignment. Discs/spinal canal/neural foramina: Anterior osteophytes seen at C5-C6. No spinal canal stenosis. Soft tissues: Unremarkable. IMPRESSION: 1. No acute intracranial findings. 2. No acute spine abnormality. No fracture or subluxation. Electronically signed by: Diomedes Cabrera MD 03/26/2020 6:18 PM [facility]
--- NOTE | 2020-03-26 18:38 | ED.PDOC ---
History of Present Illness - General Chief Complaint: Head Injury Stated Complaint: head injury,BRUNSON Time Seen by Provider: 03/26/20 17:29 Source: patient Exam Limitations: no limitations - History of Present Illness Initial Comments: The patient is a 49-year-old male presented emergency room secondary to persistent headache after a fall that he had 4 days ago. He did not lose consciousness but did hit the back of his head very hard. No vision changes. He has had some mild nausea. He has had a headache. Mild disequilibrium. He has had increased stress as his father 4 days ago. No chest palpitations or pain o palpitations. He does have some mild diffuse neck discomfort. Timing/Duration: other - 4 days Severity: moderate Improving Factors: nothing Worsening Factors: nothing Associated Symptoms: headaches Allergies/Adverse Reactions: Allergies NO KNOWN ALLERGY Allergy (Verified 01/18/18 07:17) Home Medications: Ambulatory Orders Olmesartan Medoxomil [Benicar] 40 mg PO 01/19/18 Colchicine 0.6 mg PO BID 30 Days #60 tab 01/22/18 Febuxostat [Uloric] 40 mg PO DAILY 30 Days #30 tab 01/22/18 Methylprednisolone [Medrol Dose Kamlesh] 4 mg PO DAILY 6 Days #21 tab 01/22/18 Cyclobenzaprine HCl [Flexeril] 5 mg PO TID PRN #30 tab 03/26/20 Review of Systems - Review of Systems Constitutional: States: malaise EENTM: States: no symptoms reported Respiratory: States: no symptoms reported Cardiology: States: no symptoms reported Gastrointestinal/Abdominal: States: no symptoms reported Genitourinary: States: no symptoms reported Musculoskeletal: States: neck pain Skin: States: no symptoms reported Neurological: States: headache Endocrine: States: no symptoms reported Hematologic/Lymphatic: States: no symptoms reported All other Systems: No Change from Baseline Past Medical History (General) - Patient Medical History Hx Seizures: No Hx Stroke: No Hx Asthma: No Hx of COPD: No Hx Congestive Heart Failure: No Hx Hypertension: Yes - over 10 yrs family has hx Hx Diabetes: No Hx MRSA: No - Vaccination History Hx Tetanus, Diphtheria Vaccination: No Hx Influenza Vaccination: No Hx Pneumococcal Vaccination: No - Social History Hx Tobacco Use: No Hx Alcohol Use: No Hx Substance Use: No Hx Physical Abuse: No Hx Emotional Abuse: No Family Medical History - Family History Father Family History: Unknown Living Status: Unknown Hx Family Hypertension: Yes Physical Exam - Physical Exam General Appearance: Alert, No apparent distress Eye Exam: bilateral normal Ears, Nose, Throat: hearing grossly normal, normal pharynx Neck: full range of motion, other - See above. No palpable deformity. Full range of motion. Respiratory: lungs clear, normal breath sounds, no respiratory distress, no accessory muscle use Cardiovascular/Chest: normal peripheral pulses, regular rate, rhythm, no edema Peripheral Pulses: radial,right: 2+, radial,left: 2+ Gastrointestinal/Abdominal: non tender, soft Rectal Exam: deferred Back Exam: normal inspection, no CVA tenderness, no vertebral tenderness Extremity: normal range of motion, non-tender, normal inspection, no pedal edema, normal capillary refill Neurologic: slunk skinner II-XII nml as tested, alert, normal mood/affect, oriented x 3 Skin Exam: normal color Comments: Vital Signs - 24 hr 03/26/20 17:24 Temperature 98 F Pulse Rate [ 75 Left Brachial] Respiratory 20 Rate Blood Pressure 172/115 [Left Arm] O2 Sat by Pulse 97 Oximetry Progress - Progress Progress: 03/26/20 18:38 The patient is a 49-year-old male presented emergency room secondary to persistent head pain after a fall 4 days ago. The patient appears to have sustained a concussion as well as a myofascial strain of the paracervical spinal muscles. Head CT and CT scan of the cervical spine are reassuring. The patient can take 2 Aleve twice a day with food for the next for 5 days. A heat pad to the neck may improve symptoms. He needs to keep himself well-hydrated. He will be written for low-dose Flexeril for as needed use. ER warnings are given. Keep follow-up with primary care doctor. brittney lainez 217 - Results/Orders Results/Orders: CT scan of the head and cervical spine shows no acute pathology. Departure - Departure Clinical Impression: Concussion Qualifiers: Encounter type: initial encounter Loss of consciousness presence/duration: without LOC Qualified Code(s): S06.0X0A - Concussion without loss of consciousness, initial encounter Cervical myofascial strain Qualifiers: Encounter type: initial encounter Qualified Code(s): S16.1XXA - Strain of muscle, fascia and tendon at neck level, initial encounter Disposition: Discharge to Home or Self Care Condition: Fair Departure Forms: ED Discharge - Pt. Copy, Patient Portal Self Enrollment Instructions: DI for Closed Head Injury, DI for Concussion, Concussion, Adult (DC), Back Muscle Strain (DC) Diet: regular diet Activity: increase activity as tolerated Referrals: Keegan Lainez MD [Primary Care Provider] - 1-2 Weeks Prescriptions: Cyclobenzaprine HCl [Flexeril] 5 mg PO TID PRN #30 tab PRN Reason: Muscle Spasms Home Medications: Ambulatory Orders Olmesartan Medoxomil [Benicar] 40 mg PO 01/19/18 Colchicine 0.6 mg PO BID 30 Days #60 tab 01/22/18 Febuxostat [Uloric] 40 mg PO DAILY 30 Days #30 tab 01/22/18 Methylprednisolone [Medrol Dose Kamlesh] 4 mg PO DAILY 6 Days #21 tab 01/22/18 Cyclobenzaprine HCl [Flexeril] 5 mg PO TID PRN #30 tab 03/26/20 Additional Instructions: The patient is a 49-year-old male presented emergency room secondary t o persistent head pain after a fall 4 days ago. The patient appears to have sustained a concussion as well as a myofascial strain of the paracervical spinal muscles. Head CT and CT scan of the cervical spine are reassuring. The patient can take 2 Aleve twice a day with food for the next for 5 days. A heat pad to the neck may improve symptoms. He needs to keep himself well-hydrated. He will be written for low-dose Flexeril for as needed use. ER warnings are given. Keep follow-up with primary care doctor.
[2020-03-26] MEDS ORDERED: CYCLOBENZAPRINE HCL 10 MG TAB PO ONE (18:40)
[2020-03-26] MEDS ORDERED: predniSONE 20 MG TAB PO ONE (18:40)
[2020-03-26 18:53] VITALS: BP 145/106; O2SAT 96
== END 2020-03-26 18:53 | disposition home or self-care (01) ==
LOC: ER 17:07
DX: S06.0X0A Concussion without loss of consciousness, initial encounter (principal); S16.1XXA Strain of muscle, fascia and tendon at neck level, initial encounter; I10 Essential (primary) hypertension; Z79.899 Other long term (current) drug therapy; W00.0XXA Fall on same level due to ice and snow, initial encounter; Y92.9 Unspecified place or not applicable